=== PATIENT | female | born 1945 | race Two or more races ===

== ENCOUNTER 2018-02-10 21:22 | Inpatient (IN) | payer MEDICARE, OTHER ==
[~2018-02-10] VITALS: Ht 165.1 cm; Wt 117.9 kg
[2018-02-10 21:30] VITALS: BP 134/86
--- NOTE | 2018-02-10 21:41 | Emergency Room Report ---
History of Present Illness General Chief Complaint: Dyspnea/Respdistress Source: Patient Present Illness HPI Patient present with complaints of asthma exacerbation Feels short of breath ongoing for the past one day Denies any recent travel Denies any pleurisy Denies any back or flank pain Denies any chest pain Patient has been using her inhaler without success Denies any change with position She had questionable fever starting today And for the past several days had some flu symptoms with runny nose Allergies: Coded Allergies: PENICILLINS (Verified Allergy, Unknown, 02/10/18) Patient History Past Medical History: see triage record Pertinent Family History: none Last Menstrual Period: NA Reviewed Nursing Documentation: PMH: Agreed; PSxH: Agreed Nursing Documentation-PMH Past Medical History: Deferred Review of Systems All Other Systems: negative except mentioned in HPI Physical Exam Vital Signs Date Time Temp Pulse Resp B/P (MAP) Pulse Ox O2 Delivery O2 Flow Rate FiO2 02/10/18 21:26 99.1 112 18 185/96 98 99.1 General Appearance: mild distress - Patient appears short of breath tachypneic Head: normocephalic, atraumatic Eyes: bilateral eye PERRL, bilateral eye EOMI ENT: hearing grossly normal, normal pharynx Neck: full range of motion, supple Respiratory: wheezing - Bilaterally with tachypnea, patient also shows some signs of early retractions Cardiovascular #1: regular rate, rhythm, no edema Gastrointestinal: normal bowel sounds, non tender, soft Musculoskeletal: back normal Neurologic: alert, oriented x3, responsive Skin: normal color, no rash Lymphatic: no adenopathy Procedures Critical Care Time Critical Care Time 40 minutes for initial critical presentation, hypoxic findings requiring acute attention concern for respiratory failure not including any procedural time, Medical Decision Making Diagnostic Impression: Primary Impression: Acute asthma exacerbation ER Course Patient is a fairly complex patient with multiple differential to consideration including but not limited to cardiac cardiopulmonary and vascular emergencies Patient's imaging study does not reveal any obvious acute infiltrate She has done significantly better with breathing treatments Given the initial presentation magnesium was also provided Patient requiring admission to telemetry bed for further care in improved yet serious condition Labs Test 02/10/18 21:45 White Blood Count 14.2 K/UL (4.8-10.8) Red Blood Count 4.72 M/UL (4.20-5.40) Hemoglobin 14.0 G/DL (12.0-16.0) Hematocrit 41.7 % (37.0-47.0) Mean Corpuscular Volume 88 FL (80-99) Mean Corpuscular Hemoglobin 29.6 PG (27.0-31.0) Mean Corpuscular Hemoglobin Concent 33.5 G/DL (32.0-36.0) Red Cell Distribution Width 12.9 % (11.6-14.8) Platelet Count 292 K/UL (150-450) Mean Platelet Volume 6.4 FL (6.5-10.1) Neutrophils (%) (Auto) 80.5 % (45.0-75.0) Lymphocytes (%) (Auto) 14.3 % (20.0-45.0) Monocytes (%) (Auto) 4.6 % (1.0-10.0) Eosinophils (%) (Auto) 0.1 % (0.0-3.0) Basophils (%) (Auto) 0.5 % (0.0-2.0) Sodium Level 136 MMOL/L (136-145) Potassium Level 4.1 MMOL/L (3.5-5.1) Chloride Level 102 MMOL/L (98-107) Carbon Dioxide Level 29 MMOL/L (21-32) Anion Gap 5 mmol/L (5-15) Blood Urea Nitrogen 41 mg/dL (7-18) Creatinine 1.1 MG/DL (0.55-1.30) Estimat Glomerular Filtration Rate mL/min (>60) Glucose Level 287 MG/DL (74-106) Calcium Level 10.1 MG/DL (8.5-10.1) Total Bilirubin 0.3 MG/DL (0.2-1.0) Aspartate Amino Transf (AST/SGOT) 17 U/L (15-37) Alanine Aminotransferase (ALT/SGPT) 26 U/L (12-78) Alkaline Phosphatase 98 U/L (46-116) Total Creatine Kinase 83 U/L (26-308) Creatine Kinase MB 1.9 NG/ML (0.0-3.6) Creatine Kinase MB Relative Index 2.2 Troponin I 0.004 ng/mL (0.000-0.056) Pro-B-Type Natriuretic Peptide 135 pg/mL (0-125) Total Protein 7.9 G/DL (6.4-8.2) Albumin 3.7 G/DL (3.4-5.0) Globulin 4.2 g/dL Albumin/Globulin Ratio 0.9 (1.0-2.7) Lipase 258 U/L (73-393) EKG Diagnostic Results Rate: normal Rhythm: NSR ST Segments: no acute changes Rhythm Strip Diag. Results EP Interpretation: yes Rate: 77 Rhythm: NSR, no PVC's, no ectopy Chest X-Ray Diagnostic Results Chest X-Ray Diagnostic Results : Chest X-Ray Ordered: Yes # of Views/Limited/Complete: 1 View Indication: Chest Pain EP Interpretation: Yes Interpretation: no consolidation, no effusion, no pneumothorax Impression: No acute disease Electronically Signed by: Christina Adamson DO Last Vital Signs Date Time Temp Pulse Resp B/P (MAP) Pulse Ox O2 Delivery O2 Flow Rate FiO2 02/10/18 21:26 99.1 112 18 185/96 98 99.1 Status: improved Disposition: ADMITTED INPATIENT Condition: Serious Christina Adamson DO Feb 10, 2018 21:41
[2018-02-10] MEDS ORDERED: NOVOLOG100 UNITS1 (21:44)
[2018-02-10] MEDS ORDERED: LOSARTAN-HCTZ1 EACH ORAL (21:44)
[2018-02-10] MEDS ORDERED: ALBUTEROL2.5 MG/3 M INH (21:44)
[2018-02-10] MEDS ORDERED: ASPIR 8181 MG ORAL (21:44)
[2018-02-10] MEDS ORDERED: DALIRESP500 MCG PO (21:44)
[2018-02-10] MEDS ORDERED: INCRUSE ELLI62.5 MCG IH (21:44)
[2018-02-10] MEDS ORDERED: BREO ELLIPTA 11 EACH IH (21:44)
[2018-02-10] MEDS ORDERED: CATAPRES0.1 MG ORAL (21:44)
[2018-02-10] MEDS ORDERED: JENTADUETO 2.51 EACH PO (21:44)
[2018-02-10] MEDS ORDERED: OYSTER SHELL C500 MG PO (21:44)
[2018-02-10] MEDS ORDERED: AMLODIPINE BESYL5 MG ORAL (21:44)
[2018-02-10] MEDS ORDERED: ULTRAM50 MG ORAL (21:44)
[2018-02-10] MEDS ORDERED: CELEBREX200 MG ORAL (21:44)
[2018-02-10] MEDS ORDERED: Solu-MEDROL 125mg Inj IVP ONE (21:45)
[2018-02-10] MEDS ORDERED: Ipratropium 0.02% Inh Soln 2.5ml UD HHN ONE (21:45)
[2018-02-10] MEDS ORDERED: Albuterol ud Inhalation HHN ONE (21:45)
--- NOTE | 2018-02-10 21:51 | Diagnostic Imaging Report ---
EXAM: XR Chest, 1 View CLINICAL HISTORY: SOB TECHNIQUE: Frontal view of the chest. COMPARISON: No relevant prior studies available. FINDINGS: Limitations: Study limited due to portable technique. Lungs: Unremarkable. No consolidation. Pleural space: Unremarkable. No pneumothorax. Heart: Unremarkable. No cardiomegaly. Mediastinum: Unremarkable. Bones/joints: Unremarkable. IMPRESSION: 1. Study limited due to portable technique. 2. No findings to suggest acute cardiopulmonary disease. 3. Recommend formal frontal and lateral chest radiographs when the patient can tolerate.
[2018-02-10 22:14] LABS: ANION GAP 5 mmol/L (5-15); BLOOD UREA NITROGEN 41 mg/dL (7-18); CALCIUM 10.1 MG/DL (8.5-10.1); CARBON DIOXIDE 29 MMOL/L (21-32); CHLORIDE 102 MMOL/L (98-107); CREATININE 1.1 MG/DL (0.55-1.30); POTASSIUM 4.1 MMOL/L (3.5-5.1); SODIUM 136 MMOL/L (136-145)
[2018-02-10 22:27] LABS: ALANINE AMINOTRANSFERASE 26 U/L (12-78); ALBUMIN 3.7 G/DL (3.4-5.0); ALBUMIN/GLOBULIN RATIO 0.9 (1.0-2.7); ALKALINE PHOSPHATASE 98 U/L (46-116); ASPARTATE AMINO TRANSFERASE 17 U/L (15-37); BASOPHILS % (AUTO) 0.5 % (0.0-2.0); BILIRUBIN,TOTAL 0.3 MG/DL (0.2-1.0); CKMB 1.9 NG/ML (0.0-3.6); CREATINE KINASE 83 U/L (26-308); EOSINOPHILS % (AUTO) 0.1 % (0.0-3.0); HEMATOCRIT 41.7 % (37.0-47.0); LYMPHOCYTES % (AUTO) 14.3 % (20.0-45.0); MEAN CORPUSCULAR VOLUME 88 FL (80-99); MONOCYTES % (AUTO) 4.6 % (1.0-10.0); NEUTROPHILS % (AUTO) 80.5 % (45.0-75.0); PLATELET COUNT 292 K/UL (150-450); RED BLOOD COUNT 4.72 M/UL (4.20-5.40); RED CELL DISTRIBUTION WIDTH 12.9 % (11.6-14.8); WHITE BLOOD COUNT 14.2 K/UL (4.8-10.8)
[2018-02-10 22:30] VITALS: BP 104/44
[2018-02-10 23:49] VITALS: BP 102/54
[2018-02-11 00:30] VITALS: BP 138/84
[2018-02-11 04:00] VITALS: BP 100/56
[2018-02-11] MEDS: Solu-MEDROL 125mg Inj IVP SCH ×4 (04:53→21:18)
[2018-02-11] MEDS: metFORMIN 500mg tab ORAL SCH ×3 (06:10→16:20)
[2018-02-11] MEDS: NovoLOG Insulin Flexpen SUBQ SCH ×7 (06:11→20:29)
[2018-02-11] MEDS: Albuterol/Ipratropium 3ml neb HHN SCH ×3 (07:17→18:57)
[2018-02-11 08:00] VITALS: BP 124/63
[2018-02-11] MEDS: Docusate 100mg cap ORAL SCH ×2 (08:53→20:29)
[2018-02-11] MEDS: Aspirin EC 81mg tab ORAL SCH (08:54)
[2018-02-11] MEDS: Hyzaar 12.5mg/50mg tab ORAL SCH (08:55)
[2018-02-11] MEDS: Enoxaparin 40mg Inj SUBQ SCH (08:58)
[2018-02-11 09:54] LABS: HEMATOCRIT 42.9 % (37.0-47.0); HEMOGLOBIN 13.8 G/DL (12.0-16.0); MEAN CORPUSCULAR VOLUME 92 FL (80-99); PLATELET COUNT 276 K/UL (150-450); RED BLOOD COUNT 4.65 M/UL (4.20-5.40); RED CELL DISTRIBUTION WIDTH 13.3 % (11.6-14.8); WHITE BLOOD COUNT 14.6 K/UL (4.8-10.8)
[2018-02-11 10:07] LABS: ANION GAP 10 mmol/L (5-15); BLOOD UREA NITROGEN 47 mg/dL (7-18); CALCIUM 9.8 MG/DL (8.5-10.1); CARBON DIOXIDE 27 MMOL/L (21-32); CHLORIDE 99 MMOL/L (98-107); CREATININE 1.6 MG/DL (0.55-1.30); POTASSIUM 4.3 MMOL/L (3.5-5.1); SODIUM 136 MMOL/L (136-145)
[2018-02-11] MEDS ORDERED: Insulin Human Regular 100units/ml 3ml IV ONE (11:45)
[2018-02-11 12:00] VITALS: BP 117/54
--- NOTE | 2018-02-11 14:00 | History and Physical Report ---
DATE OF ADMISSION: 02/10/2018 REASON FOR ADMISSION: 1. Shortness of breath. 2. Asthma exacerbation. 3. Tobacco dependency. HISTORY OF PRESENT ILLNESS: The patient is a pleasant 72-year-old female, who is being admitted for further evaluation and care of shortness of breath. The patient does have known asthma. She was using her inhalers without success. She does admit to continued tobacco use. However, she stated since she started to get short of breath, she started smoking this morning. No current chest pain, nausea, vomiting, or diarrhea currently. Still has some shortness of breath. ALLERGIES: Penicillin. PAST MEDICAL HISTORY: 1. Asthma. 2. Diabetes mellitus. 3. Hypertension. 4. Hyperlipidemia. FAMILY HISTORY: Positive for hypertension and diabetes. PAST SURGICAL HISTORY: Noncontributory REVIEW OF SYSTEMS: NEUROLOGIC: The patient denies headache, change in vision, syncope, or presyncopal episodes. CARDIOVASCULAR: No current chest pain, palpitations, or angina. PULMONARY: Shortness of breath with productive cough. GASTROINTESTINAL/GENITOURINARY: No changes in urinary or bowel habits. No nausea, vomiting, or diarrhea. ENDOCRINOLOGY: No night sweats, fevers, or chills. MUSCULOSKELETAL: The patient feeling weak, tired, and fatigued. PHYSICAL EXAMINATION: VITAL SIGNS: Blood pressure 124/63, pulse 101, temperature 97.5, and oxygen saturation 96% on 3 liters nasal cannula. GENERAL: The patient awake, alert, not otherwise in distress. HEENT: Extraocular muscles intact. No lymphadenopathy. CARDIOVASCULAR: S1, S2. No rubs or gallops. PULMONARY: Diffuse expiratory wheezing throughout lung gonzalez. Fair airway movement. ABDOMEN: Obese, nondistended, and nontender. EXTREMITIES: No edema. LABORATORY DATA: Laboratories dated February 10, 2018, sodium 136, potassium 4.1, creatinine 1.1, glucose 287. Troponin 0.004. Hemoglobin 14, white cell count 14.2, and platelet count 292. ASSESSMENT AND PLAN: 1. Asthma exacerbation. At this time, continue IV Solu-Medrol and DuoNebs. Pulmonary Dr. Amor, has been consulted for further evaluation and management. Tobacco cessation given at bedside. 2. Tobacco dependency. Explained to the patient to discontinue all tobacco use from this day for due to her asthma exacerbation. 3. Hypertension. Stable. Continue current regimen. 4. Diabetes mellitus. We will use insulin therapy and metformin with low carbohydrate diet. 5. DVT prophylaxis with Lovenox. Benny Carrillo MD DR: CHRISTOPHER JOB#: [id number] CC:
[2018-02-11 15:55] VITALS: BP 117/58
[2018-02-11 20:00] VITALS: BP 134/68
[2018-02-12] VITALS: BP 127/69
[2018-02-12] MEDS: Albuterol/Ipratropium 3ml neb HHN SCH ×4 (01:00→19:12)
[2018-02-12 04:00] VITALS: BP 139/85
[2018-02-12] MEDS: metFORMIN 500mg tab ORAL SCH ×3 (06:00→16:47)
[2018-02-12] MEDS: NovoLOG Insulin Flexpen SUBQ SCH ×7 (06:01→21:32)
[2018-02-12 08:00] VITALS: BP 150/85
[2018-02-12 08:29] LABS: HEMATOCRIT 41.9 % (37.0-47.0); HEMOGLOBIN 14.1 G/DL (12.0-16.0); MEAN CORPUSCULAR VOLUME 91 FL (80-99); PLATELET COUNT 266 K/UL (150-450); RED BLOOD COUNT 4.58 M/UL (4.20-5.40); RED CELL DISTRIBUTION WIDTH 13.2 % (11.6-14.8); WHITE BLOOD COUNT 18.4 K/UL (4.8-10.8)
[2018-02-12 09:05] LABS: ANION GAP 8 mmol/L (5-15); BLOOD UREA NITROGEN 41 mg/dL (7-18); CALCIUM 9.5 MG/DL (8.5-10.1); CARBON DIOXIDE 28 MMOL/L (21-32); CHLORIDE 101 MMOL/L (98-107); POTASSIUM 4.3 MMOL/L (3.5-5.1); SODIUM 137 MMOL/L (136-145)
[2018-02-12] MEDS: Docusate 100mg cap ORAL SCH ×2 (09:14→21:00)
[2018-02-12] MEDS: Hyzaar 12.5mg/50mg tab ORAL SCH (09:14)
[2018-02-12] MEDS: Solu-MEDROL 40mg Inj IVP SCH ×2 (09:14→21:31)
[2018-02-12] MEDS: Aspirin EC 81mg tab ORAL SCH (09:14)
[2018-02-12] MEDS: Enoxaparin 40mg Inj SUBQ SCH (09:15)
[2018-02-12] MEDS: Advair 250/50 Inhaler - 14 dose INH SCH ×2 (11:40→19:12)
--- NOTE | 2018-02-12 11:45 | Consultation ---
DATE OF CONSULTATION: 02/12/2018 PULMONARY CONSULTATION CONSULTING PHYSICIAN: Steve Amor M.D. REASON FOR CONSULTATION: COPD exacerbation. HISTORY OF PRESENT ILLNESS: This is a 72-year-old female, well known to me with advanced COPD and long-standing history of smoking. The patient presents with increasing shortness of breath, increasing chest tightness, difficulty to mobilize secretions. The patient notes no chest pain. No radiation of pain. No nausea or vomiting. No fevers. The patient has scant sputum production. The patient was admitted and I was called to assist to evaluate and recommend further. The patient does have a longstanding history of COPD as mentioned. The patient has been unable to stop smoking. She does take inhalers on a regular basis and apparently is compliant. No ill patient exposure. No recent travel. PAST MEDICAL HISTORY: Notable for COPD, diabetes, hypertension, and hyperlipidemia. FAMILY HISTORY: Notable for hypertension and diabetes. PAST SURGICAL HISTORY: Noncontributory. MEDICATIONS: Reviewed. ALLERGIES: Reviewed. REVIEW OF SYSTEMS: All 10 points reviewed and otherwise negative. PHYSICAL EXAMINATION: GENERAL: A well-developed female, comfortable, but mildly short of breath. VITAL SIGNS: Blood pressure 139/85, pulse 87, temperature 97.6, respirations 20, and saturations 96%. HEENT: Negative. Extraocular movements are grossly intact. Oropharynx without thrush. NECK: Supple. Carotids are 2+. LUNGS: Scattered wheezes. Poor air entry. No rhonchi. CARDIAC: Normal S1 and S2. Regular rate and rhythm without murmurs, rubs, gallops, distant. ABDOMEN: Soft, obese, nontender. EXTREMITIES: No cyanosis, clubbing, or edema. NEUROLOGICAL: Grossly nonfocal. Alert and oriented x3. LABORATORY AND DIAGNOSTIC DATA: Lab data reviewed. White count 14.6, otherwise fairly negative. Chemistry, blood sugar is 526. BUN and creatinine 47 and 1.6. X-ray of the chest on 02/10/2018 shows no significant acute changes. IMPRESSION: 1. COPD with acute exacerbation. 2. Respiratory insufficiency. 3. Acute bronchospasm. 4. Diabetes. 5. Hypertension. 6. Hyperlipidemia. RECOMMENDATIONS: Supportive care. IV Solu-Medrol. Monitor blood sugars as per primary. Respiratory care with nebulized therapy and would resume combination of inhaled corticosteroids, long-acting bronchodilators, and long-acting muscarinic agent. We will follow clinically for change and hope to proceed with discharge planning once the patient improves. Steve Amor M.D. DR: VERONICA JOB#: [id number] CC:
[2018-02-12 12:00] VITALS: BP 133/76
--- NOTE | 2018-02-12 12:33 | General Progress Note ---
Assessment/Plan Problem List: (1) Acute asthma exacerbation ICD Codes: J45.901 - Unspecified asthma with (acute) exacerbation SNOMED: 760632437 (2) DM (diabetes mellitus) ICD Codes: E11.9 - Type 2 diabetes mellitus without complications SNOMED: 12818488 (3) HTN (hypertension) ICD Codes: I10 - Essential (primary) hypertension SNOMED: 16077875 Assessment/Plan continue with IV steroids Bronchodilators follow BSs Discussed with RN Subjective Allergies: Coded Allergies: PENICILLINS (Verified Allergy, Unknown, 02/10/18) Subjective In NAD Objective Last 24 Hour Vital Signs Date Time Temp Pulse Resp B/P (MAP) Pulse Ox O2 Delivery O2 Flow Rate FiO2 02/12/18 11:51 101 20 98 Nasal Cannula 3.0 32 02/12/18 11:40 83 20 95 Nasal Cannula 2.0 28 02/12/18 09:14 150/85 02/12/18 09:14 89 150/85 02/12/18 09:00 Nasal Cannula 3.0 Nasal Cannula 3.0 02/12/18 08:00 97 02/12/18 08:00 98.0 89 18 150/85 (106) 96 98.0 02/12/18 04:00 87 02/12/18 04:00 97.6 89 20 139/85 (103) 96 97.6 02/12/18 01:06 Nasal Cannula 02/12/18 01:06 Nasal Cannula 02/12/18 00:00 90 02/12/18 00:00 97.6 86 20 127/69 (88) 95 97.6 02/11/18 20:14 Nasal Cannula 3.0 Nasal Cannula 3.0 02/11/18 20:00 105 02/11/18 20:00 97.9 98 20 134/68 (90) 95 97.9 02/11/18 19:07 101 20 98 Nasal Cannula 3.0 32 02/11/18 18:57 94 22 96 Nasal Cannula 3.0 32 02/11/18 16:00 99 02/11/18 15:55 98.2 95 18 117/58 (77) 96 98.2 02/11/18 13:27 105 20 99 Nasal Cannula 3.0 32 02/11/18 13:17 99 22 98 Nasal Cannula 3.0 32 Intake and Output 02/11/18 02/12/18 19:00 07:00 Intake Total 1740 ml 1060 ml Balance 1740 ml 1060 ml Intake Oral 840 ml 200 ml IV Total 900 ml 860 ml # Voids 4 2 Laboratory Tests 02/12/18 06:45: White Blood Count 18.4H, Red Blood Count 4.58, Hemoglobin 14.1, Hematocrit 41.9 , Mean Corpuscular Volume 91, Mean Corpuscular Hemoglobin 30.7, Mean Corpuscular Hemoglobin Concent 33.6, Red Cell Distribution Width 13.2, Platelet Count 266, Mean Platelet Volume 6.6, Neutrophils (%) (Auto) , Lymphocytes (%) ( Auto) , Monocytes (%) (Auto) , Eosinophils (%) (Auto) , Basophils (%) (Auto) , Differential Total Cells Counted 100, Neutrophils % (Manual) 94H, Lymphocytes % (Manual) 6L, Monocytes % (Manual) 0L, Eosinophils % (Manual) 0, Basophils % ( Manual) 0, Band Neutrophils 0, Platelet Estimate Adequate, Platelet Morphology Normal, Sodium Level 137, Potassium Level 4.3, Chloride Level 101, Carbon Dioxide Level 28, Anion Gap 8, Blood Urea Nitrogen 41H, Creatinine 1.0, Estimat Glomerular Filtration Rate , Glucose Level 409#H, Calcium Level 9.5 Height (Feet): 5 Height (Inches): 5.00 Weight (Pounds): 260 Cardiovascular: normal rate Respiratory/Chest: expiratory wheezing Edema: 1+ Generalized Randy Peng MD Feb 12, 2018 12:33
[2018-02-12 16:00] VITALS: BP 131/67
[2018-02-12 20:00] VITALS: BP 139/66
[2018-02-13] VITALS: BP 136/80
[2018-02-13] MEDS: Albuterol/Ipratropium 3ml neb HHN SCH ×2 (01:35→07:04)
[2018-02-13 04:00] VITALS: BP 129/78
[2018-02-13] MEDS: NovoLOG Insulin Flexpen SUBQ SCH ×2 (06:05→06:06)
[2018-02-13] MEDS: metFORMIN 500mg tab ORAL SCH (06:07)
[2018-02-13] MEDS: Advair 250/50 Inhaler - 14 dose INH SCH (07:06)
[2018-02-13] MEDS: Docusate 100mg cap ORAL SCH ×2 (07:59→08:06)
[2018-02-13] MEDS: Aspirin EC 81mg tab ORAL SCH (07:59)
[2018-02-13 08:00] VITALS: BP 123/61
[2018-02-13] MEDS: Hyzaar 12.5mg/50mg tab ORAL SCH (08:00)
[2018-02-13] MEDS: Solu-MEDROL 40mg Inj IVP SCH (08:00)
[2018-02-13] MEDS: Enoxaparin 40mg Inj SUBQ SCH (08:01)
--- NOTE | 2018-02-13 09:25 | Pulmonology Progress Note ---
Assessment/Plan Assessment/Plan IMPRESSION: 1. COPD with acute exacerbation. 2. Respiratory insufficiency. 3. Acute bronchospasm. 4. Diabetes. 5. Hypertension. 6. Hyperlipidemia. PLAN Respiratory care medrol jared maintain same inhalers as home add froy add libbyk dc home with outpatient follow up impression, plan, and exam edited and reviewed in detail care discussed with RN Subjective Allergies: Coded Allergies: PENICILLINS (Verified Allergy, Unknown, 02/10/18) Subjective wants to go home breathing easier no distress Objective Last 24 Hour Vital Signs Date Time Temp Pulse Resp B/P (MAP) Pulse Ox O2 Delivery O2 Flow Rate FiO2 02/13/18 09:00 Nasal Cannula 2.0 Nasal Cannula 2.0 02/13/18 08:00 98.2 90 20 123/61 (81) 97 98.2 02/13/18 08:00 123/61 02/13/18 08:00 89 123/61 02/13/18 07:23 Nasal Cannula 2.0 28 02/13/18 07:18 85 20 99 Nasal Cannula 2.0 28 02/13/18 07:10 82 20 97 Nasal Cannula 2.0 28 02/13/18 07:10 97 Nasal Cannula 2.0 28 02/13/18 04:00 75 02/13/18 04:00 96.9 90 19 129/78 (95) 98 96.9 02/13/18 01:45 87 20 99 Nasal Cannula 2.0 28 02/13/18 01:35 90 20 96 Nasal Cannula 2.0 28 02/13/18 00:00 94 02/13/18 00:00 97.9 95 20 136/80 (98) 95 97.9 02/12/18 21:00 Nasal Cannula 2.0 Nasal Cannula 2.0 02/12/18 20:00 102 02/12/18 20:00 96.3 93 20 139/66 (90) 96 96.3 02/12/18 19:20 99 20 97 Nasal Cannula 2.0 28 02/12/18 19:12 96 Nasal Cannula 2.0 28 02/12/18 19:12 Nasal Cannula 2.0 28 02/12/18 19:12 94 22 96 Nasal Cannula 2.0 28 02/12/18 16:09 95 20 99 Nasal Cannula 2.0 28 02/12/18 16:00 105 02/12/18 16:00 98.1 90 18 131/67 (88) 96 98.1 02/12/18 15:58 94 22 94 Nasal Cannula 2.0 28 02/12/18 12:00 97.9 89 18 133/76 (95) 96 97.9 02/12/18 12:00 87 02/12/18 11:51 101 20 98 Nasal Cannula 3.0 32 02/12/18 11:40 83 20 95 Nasal Cannula 2.0 28 Intake and Output 02/12/18 02/13/18 19:00 07:00 Intake Total 1375 ml Balance 1375 ml IV Total 375 ml Other 1000 ml # Voids 4 1 Objective PHYSICAL EXAMINATION: GENERAL: A well-developed female, comfortable, but mildly short of breath. HEENT: Negative. Extraocular movements are grossly intact. Oropharynx without thrush. NECK: Supple. Carotids are 2+. LUNGS: minimal wheezes. Poor air entry. No rhonchi. CARDIAC: Normal S1 and S2. Regular rate and rhythm without murmurs, rubs, gallops, distant. ABDOMEN: Soft, obese, nontender. EXTREMITIES: No cyanosis, clubbing, or edema. NEUROLOGICAL: Grossly nonfocal. Alert and oriented x3. Current Medications Medications (Trade) Dose Ordered Sig/Monik Route PRN Reason Start Time Stop Time Status Last Admin Dose Admin Acetaminophen (Tylenol) 650 mg Q4H PRN ORAL Mild Pain (Pain Scale 1-3) 02/11/18 02:30 03/13/18 02:29 Albuterol/ Ipratropium (Albuterol/ Ipratropium) 3 ml Q6HRT HHN 02/11/18 07:00 02/16/18 06:59 02/13/18 07:04 Amlodipine Besylate (Norvasc) 5 mg DAILY ORAL 02/11/18 09:00 03/13/18 08:59 02/13/18 08:00 Aspirin (Ecotrin) 81 mg DAILY ORAL 02/11/18 09:00 03/13/18 08:59 02/13/18 07:59 Dextrose (Dextrose 50%) 25 ml STAT PRN IV Hypoglycemia 02/11/18 02:45 03/13/18 02:44 Dextrose (Dextrose 50%) 50 ml STAT PRN IV Hypoglycemia 02/11/18 02:45 03/13/18 02:44 Diphenhydramine HCl (Benadryl) 25 mg Q6H PRN ORAL Itching/Pruritis 02/11/18 02:30 03/13/18 02:29 Docusate Sodium (Colace) 100 mg EVERY 12 HOURS ORAL 02/11/18 09:00 03/13/18 08:59 02/12/18 09:14 Enoxaparin Sodium (Lovenox) 40 mg DAILY SUBQ 02/11/18 09:00 03/13/18 08:59 02/13/18 08:01 HCTZ/Losartan Potassium (Hyzaar 50-12.5) 2 tab DAILY ORAL 02/11/18 09:00 03/13/18 08:59 02/13/18 08:00 Insulin Aspart (NovoLOG) BEFORE MEALS AND HS SUBQ 02/11/18 06:30 03/13/18 06:29 02/13/18 06:06 Insulin Aspart (NovoLOG) 12 units NOVOTIAC SUBQ 02/11/18 11:50 03/13/18 11:49 02/13/18 06:05 Metformin HCl (Glucophage) 500 mg TIAC ORAL 02/11/18 06:30 03/13/18 06:29 02/13/18 06:07 Methylprednisolone Sodium Succinate (Solu-MEDROL) 40 mg EVERY 12 HOURS IVP 02/12/18 09:00 03/14/18 08:59 02/13/18 08:00 Ondansetron HCl (Zofran) 4 mg Q6H PRN IVP Nausea & Vomiting 02/11/18 02:30 03/13/18 02:29 Salmeterol Xinafoate/ Fluticasone (Advair 250/50 Diskus) 1 puffs BID INH 02/12/18 09:00 03/14/18 08:59 02/13/18 07:06 Sodium Chloride 1,000 ml @ 75 mls/hr [id number] IVLG 02/11/18 03:30 03/13/18 03:29 02/13/18 08:04 Steve Amor MD Feb 13, 2018 09:25
--- NOTE | 2018-02-13 11:58 | General Progress Note ---
Assessment/Plan Problem List: (1) Acute asthma exacerbation ICD Codes: J45.901 - Unspecified asthma with (acute) exacerbation SNOMED: 793078170 (2) DM (diabetes mellitus) ICD Codes: E11.9 - Type 2 diabetes mellitus without complications SNOMED: 26778388 (3) HTN (hypertension) ICD Codes: I10 - Essential (primary) hypertension SNOMED: 38993543 Assessment/Plan Dc today per Dr Garza Subjective Allergies: Coded Allergies: PENICILLINS (Verified Allergy, Unknown, 02/10/18) Subjective all noted Objective Last 24 Hour Vital Signs Date Time Temp Pulse Resp B/P (MAP) Pulse Ox O2 Delivery O2 Flow Rate FiO2 02/13/18 09:00 Nasal Cannula 2.0 Nasal Cannula 2.0 02/13/18 08:00 98.2 90 20 123/61 (81) 97 98.2 02/13/18 08:00 123/61 02/13/18 08:00 89 123/61 02/13/18 07:23 Nasal Cannula 2.0 28 02/13/18 07:18 85 20 99 Nasal Cannula 2.0 28 02/13/18 07:10 82 20 97 Nasal Cannula 2.0 28 02/13/18 07:10 97 Nasal Cannula 2.0 28 02/13/18 04:00 75 02/13/18 04:00 96.9 90 19 129/78 (95) 98 96.9 02/13/18 01:45 87 20 99 Nasal Cannula 2.0 28 02/13/18 01:35 90 20 96 Nasal Cannula 2.0 02/13/18 00:00 94 02/13/18 00:00 97.9 95 20 136/80 (98) 95 97.9 02/12/18 21:00 Nasal Cannula 2.0 Nasal Cannula 2.0 02/12/18 20:00 102 02/12/18 20:00 96.3 93 20 139/66 (90) 96 96.3 02/12/18 19:20 99 20 97 Nasal Cannula 2.0 28 02/12/18 19:12 96 Nasal Cannula 2.0 28 02/12/18 19:12 Nasal Cannula 2.0 28 02/12/18 19:12 94 22 96 Nasal Cannula 2.0 28 02/12/18 16:09 95 20 99 Nasal Cannula 2.0 28 02/12/18 16:00 105 02/12/18 16:00 98.1 90 18 131/67 (88) 96 98.1 02/12/18 15:58 94 22 94 Nasal Cannula 2.0 28 02/12/18 12:00 97.9 89 18 133/76 (95) 96 97.9 02/12/18 12:00 87 Intake and Output 02/12/18 02/13/18 19:00 07:00 Intake Total 1375 ml Balance 1375 ml IV Total 375 ml Other 1000 ml # Voids 4 1 Height (Feet): 5 Height (Inches): 5.00 Weight (Pounds): 260 Randy Peng MD Feb 13, 2018 11:58
--- NOTE | 2018-02-15 08:11 | Discharge Summary ---
Discharge Summary Discharge Summary _ DATE OF ADMISSION: 02/10/2018 DATE OF DISCHARGE: 02/13/2018 REASON FOR ADMISSION: 72 years old female with past medical history significant for asthma/COPD, diabetes mellitus, hypertension, hyperlipidemia, breast cancer, status post mastectomy, current tobacco user, presented for evaluation due to shortness of breath. She was using inhalers at home without success. No chest pain, no nausea, no vomiting ,no diarrhea. Blood pressure was elevated 185/96, she was tachycardic 112 . CXR revealed no acute cardiopulmonary pathology. Troponin was negative. Stable electrolytes and renal parameters. Patient admitted with diagnosis of asthma exacerbation, tobacco dependency , hypertension, diabetes CONSULTANTS: pulmonary [facility] COURSE: Patient admitted. Pulmonology consult was requested. Supplemental oxygen provided as needed to keep pulse oximetry above 92%. Pulmonary toilet provided around the clock and as needed Advair resumed. Patient started on IV steroids with gradual tapering down. Patient started on empiric antibiotics . Blood pressure was managed with calcium channel orin, losartan and hydrochlorothiazide, and remained stable. S Renal parameters and electrolytes were closely monitored. Blood sugar was managed with metformin , and sliding scale of insulin was on board as needed. Patient clinically improved. Prior to discharge pulse oximetry was stable on room air, no further wheezing. Patient was discharged on Medrol Dosepak and Z-Jose A. Patient was counseled on smoking cessation . Patient to continue inhalers at home. Outpatient follow-up with [facility] FINAL DIAGNOSES: Asthma/COPD with acute exacerbation Respiratory insufficiency Acute bronchospasm Tobacco dependence Diabetes mellitus Hypertension DISCHARGE MEDICATIONS: See Medication Reconciliation list. DISCHARGE INSTRUCTIONS: Patient was discharged home. Follow-up with [facility] as outpatient in one week I have been assigned to dictate discharge summary for this account. I was not involved in the patient's management. Chanda Lombardo NP Feb 15, 2018 08:11
--- NOTE | 2018-02-16 16:33 | Cardiology Report ---
APPROVED REPORT EKG Measurement Heart [id number] Sinus tachycardia Otherwise normal ECG
== END 2018-02-13 11:20 | disposition home health service (06) | DRG 192 ==
LOC: EMR 21:58 → 2E 23:02 → EDBEDREQ 23:13
DX: J44.1 Chronic obstructive pulmonary disease with (acute) exacerbation (principal); I10 Essential (primary) hypertension; E11.9 Type 2 diabetes mellitus without complications; F17.200 Nicotine dependence, unspecified, uncomplicated; Z88.0 Allergy status to penicillin; E78.5 Hyperlipidemia, unspecified
CPT/HCPCS: 36415; 71045; 80048; 80053; 82550; 82553; 82962; 83690; 83880; 84484; 85007; 85025; 93005; 94640; 94664; 94760; 99291; J1815; J7620